=== PATIENT | female | born 1975 | race Caucasian/White ===

== ENCOUNTER 2018-04-11 08:25 | Emergency (ER) | payer MEDICAID ==
[~2018-04-11] VITALS: Ht 152.4 cm; Wt 52.6 kg
[2018-04-11 08:41] VITALS: Ht 152.4 cm; Wt 52.6 kg
[2018-04-11 09:27] LABS: BASOPHIL % 0.5 % (0-2); PLATELET COUNT 217 x10^3mcL (130-400); RED CELL DISTRIBUTION WIDTH 13.9 % (11.5-14.5)
[2018-04-11 10:02] LABS: CALCIUM 8.9 mg/dL (8.5-10.1); CARBON DIOXIDE 29.3 mmol/L (21-32); CHLORIDE SERUM 105 mmol/L (98-107); CREATININE SERUM 0.7 mg/dL (0.6-1.0); GFR1 > 60 mL/min; GLUCOSE SERUM 87 mg/dL (74-106); POTASSIUM SERUM 3.7 mmol/L (3.5-5.1); SODIUM SERUM 140 mmol/L (136-145)
[2018-04-11 10:06] LABS: ALKALINE PHOSPHATASE 61 U/L (46-116); ALT/SGPT 22 U/L (14-59); AST/SGOT 17 U/L (15-37); BILIRUBIN TOTAL 0.3 mg/dL (0.20-1.00); TOTAL PROTEIN, SERUM 6.8 g/dL (6.4-8.2)
[2018-04-11 10:07] LABS: ALBUMIN 3.1 g/dL (3.4-5.0)
[2018-04-11 11:28] VITALS: BP 125/81
== END 2018-04-11 11:28 | disposition home or self-care (01) ==
LOC: ED 08:25
PROVIDERS: Emergency Medicine
DX: N83.202 Unspecified ovarian cyst, left side (principal)
CPT/HCPCS: J1885; J7030

== ENCOUNTER 2019-01-03 17:19 | Emergency (ER) | payer MEDICAID ==
[~2019-01-03] VITALS: Ht 149.9 cm; Wt 52.2 kg
[2019-01-03 17:51] VITALS: Ht 149.9 cm; Wt 52.2 kg
[2019-01-03 20:32] LABS: microscopic required? NO
[2019-01-03 20:50] VITALS: BP 126/56
[2019-01-03 20:58] LABS: UA SPECIFIC GRAVITY 1.025 (1.005-1.035); urine erythrocyte NEGATIVE (NEGATIVE)
== END 2019-01-03 20:51 | disposition home or self-care (01) ==
LOC: ED 17:19
PROVIDERS: Emergency Medicine
DX: N39.0 Urinary tract infection, site not specified (principal)
CPT/HCPCS: J1885

== ENCOUNTER 2019-11-29 17:36 | Emergency (ER) | payer MEDICAID ==
[~2019-11-29] VITALS: Ht 152.4 cm; Wt 55.8 kg
[2019-11-29 17:58] VITALS: Ht 152.4 cm; Wt 55.8 kg
[2019-11-29 20:38] VITALS: BP 116/61
== END 2019-11-29 20:38 | disposition home or self-care (01) ==
LOC: ED 17:36
DX: N39.0 Urinary tract infection, site not specified (principal); Z98.890 Other specified postprocedural states
CPT/HCPCS: J1885